=== PATIENT | male | born 1945 | race Caucasian/White ===

== ENCOUNTER 2017-11-27 15:16 | Inpatient (IN) | payer OTHER, SELFPAY ==
[2017-11-27 23:45] VITALS: BP 148/86; PULSE 63; RESP 20; TEMP 36.5; O2SAT 98
[2017-11-28] VITALS (7 sets, daily range): BP systolic 127–152; BP diastolic 64–83; PULSE 69–75; RESP 16–20; TEMP 36.4–36.9; O2SAT 92–99
[2017-11-28] MEDS: METOCLOPRAMIDE 10 MG/2 ML VIAL IV ×2 (03:24→12:21)
[2017-11-28] MEDS: MAG HYDROX/ALUM/SIMETH 30 ML UDC PO (03:35)
[2017-11-28] MEDS: OXYCODONE IR 5 MG TABLET PO ×2 (04:03→05:07)
[2017-11-28] MEDS: CEFAZOLIN 2 GM/100 ML FROZ.PIGGY IV (05:10)
[2017-11-28 06:09] LABS: Hematocrit 35.8 % (41-53); Hemoglobin 12.4 g/dL (13.5-17.5); Mean Corpuscular HGB Conc 34.7 % (30-36); Mean Corpuscular Hemoglobin 31.7 PG (26-34); Mean Corpuscular Volume 91.3 fL (80-100); Platelet Count 161 X10^3/uL (150-400); Red Blood Cell Count 3.92 X10^6/uL (4.5-5.9); Red Cell Distribution Width 14.2 % (11.6-14.8); White Blood Cell Count 8.1 X10^3/uL (4.5-11.0)
[2017-11-28] MEDS: ASPIRIN EC 81 MG TABLET PO ×2 (08:58→20:00)
[2017-11-28] MEDS: FLUTICASONE 120 SPRAY/16 GM SPRAY.SUSP NASAL (08:59)
[2017-11-28] MEDS: buPROPion SR 100 MG TAB PO ×2 (08:59→20:00)
[2017-11-28] MEDS: DOCUSATE 100 MG CAPSULE PO ×2 (08:59→20:00)
[2017-11-28] MEDS: LISINOPRIL 20 MG TABLET 40 MG PO (09:01)
[2017-11-28] MEDS: SODIUM CHLORIDE 0.9% FLUSH 10 ML IV ×3 (09:01→20:00)
--- NOTE | 2017-11-28 09:33 | P.PN_ITS ---
Subjective Interval history: POD #1 s/p left total knee arthroplasty with Dr. Kirk. Patient's pain is well controlled this AM with Oxycodone. ASA 81mg BID for vte prophylaxis. Has been up with PT yesterday, will mobilize today. Patient has flexion contracture of non-op leg, and does not have a wedge. Date Patient Seen: 11/28/17 Time Patient Seen: 09:23 Exam Vital Signs (past 8 hours): Vital Signs - 8 hr 11/28/17 03:40 11/28/17 07:45 Temperature 97.6 F 98.2 F Pulse Rate 75 71 Respiratory Rate 18 16 Blood Pressure 151/83 H 152/80 H Pulse Oximetry 96 98 Temperature 98.2 F Temperature 97.6 F Pulse Rate 71 Pulse Rate 75 Respiratory Rate 16 Respiratory Rate 18 Blood Pressure 152/80 Blood Pressure 151/83 Pulse Oximetry 98 Pulse Oximetry 96 Objective Labs CBC & Chem 7: 11/28/17 05:23 Labs: Laboratory Results - last 24 hr 11/28/17 05:23 WBC 8.1 RBC 3.92 L Hgb 12.4 L Hct 35.8 L MCV 91.3 MCH 31.7 MCHC 34.7 RDW 14.2 Plt Count 161 A/P Post-op (1) S/P total knee arthroplasty: Current Visit: Yes Status: Acute (2) Unilateral primary osteoarthritis, left knee: Current Visit: Yes Status: Acute Time Spent With Patient POD #1 s/p left total knee arthroplasty with Dr. Kirk. Patient will need wedge for his non operative shoe, that he can purchase at [email or web address]. Patient has pain medication and prescriptions already at home. Continue aspirin for vte prophylaxis. Patient did have structures in the operating room when Candelario catheter was placed. We will remove catheter this morning and monitor patient's urination. If patient is mobilizing well, pain under control, and urinating on his own he can DC home today. less than 15 minutes
--- NOTE | 2017-11-28 09:48 | CM.DPNOTE ---
DCP/continued: Reviewed chart. Pt. underwent left TKA on 11-27-[address] Kirk. Met with patient, spouse/Xochitl, and daughter/Antonette at bedside explained CM/SW role. Patient reports that he hopes to go home today. PT evaluation currently pending. Patient has all needed DME and reports that outpatient therapy scheduled to begin next week at [facility] in [facility]. P: Home when medically stable. CM team to continue to follow as needed. JESE Paz
[2017-11-28] MEDS: OXYCODONE IR 10 MG TABLET PO ×3 (10:44→19:58)
[2017-11-28] MEDS: TIZANIDINE 4 MG TABLET PO (12:19)
[2017-11-28] MEDS: ACETAMINOPHEN 325 MG TABLET 650 MG PO ×2 (12:20→20:58)
--- NOTE | 2017-11-28 13:17 | PT.IIE ---
Physical Therapy Inpatient M1 PT/OT-IP Prior Functional Status Start: 11/28/17 12:52 Freq: NEEDED Status: Active Protocol: Document 11/28/17 12:53 AB (Rec: 11/28/17 13:16 AB [email or web address]) Medical Review Prior Functional Status Medical History Reviewed Yes Diet/Fluid Consistency Regular Mobility and Gait Independent with all mobilities and ambulation without AD Social History Household Members spouse Living Arrangements House Number of Floors (Floors) One Floor Number of Stairs To Enter/Railing? 2 steps with L rail and R bar on door Home Environment High Toilet Home Equipment Front Wheel Walker Four Wheel Walker Straight Cane Employment Status [employer] Employed Additional Social History Comment pt works once a week: [employer] [address] M2 PT-IP Current Condition Start: 11/28/17 12:52 Freq: NEEDED Status: Active Protocol: Document 11/28/17 12:53 AB (Rec: 11/28/17 13:16 AB [email or web address]) Physical Therapy Current Condition Current Condition Evaluation Date 11/28/17 Treatment Diagnosis s/p L TKR; difficulty in ambulation Onset Date 11/27/17 Weight Bearing Status Weight Bearing Status Weight Bear as Tolerated Allowed Weight Bearing Amount (enter % LLE WBAT or #) (%) M3 PT-IP Subjective Start: 11/28/17 12:52 Freq: NEEDED Status: Active Protocol: Document 11/28/17 12:53 AB (Rec: 11/28/17 13:16 AB [email or web address]) Subjective Physical Therapy Visit Type Type Initial Evaluation Visit Start Time 10:52 Visit Stop Time 12:00 Total Visit Minutes 68 Number of LIGHT ARMORED VEHICLE OFFICER Visits 0 Physical Therapy Visit Comments Patient Comments i feel sore Therapy Pain Assessment Pain When Pain Assessed At Rest Pain Present Pain Present Pain Reported Location Left Knee Intensity 5 Scale Used Numeric (1 - 10) Description Pulling Pain Behaviors Guarding Pain Management Techniques Apply Cold Timing of Activity with Medications M4 PT-IP Mobility and Gait Start: 11/28/17 12:52 Freq: NEEDED Status: Active Protocol: Document 11/28/17 12:53 AB (Rec: 11/28/17 13:16 AB [email or web address]) PT-Bed Mobility Assessment Supine to Sit Supine to Sit Standby Assistance Sit to Supine Sit to Supine Minimal Assistance Scooting Scooting to Edge of Bed Standby Assistance PT-Transfer Assessment Sit to and From Stand Sit to and from Stand Minimal Assistance Equipment Transfer Assistive Device Gait Belt Front Wheeled Walker Transfers Transfer Destination Chair Transfer Technique Stand Step Pivot Transfer Ability Level of Assist Minimal Assistance Comments Mobility Comments Pt completed sit <>stand x 2 reps with cues for techniques. caregiver training conducted with assisting pt for bed mobility and transfers. Gait Assessment Gait Gait Assistance Required: Minimum Assistance Distance (Feet) (feet) 35 Able to Maintain Weight Bearing Status Yes During Gait Assistive Devices Assistive Device Gait Belt Front Wheeled Walker Orthotic/Prosthetic Devices or Brace: No Gait Deviations General Gait Pattern Antalgic Decreased Stride Length Decreased Feet Clearance Step-to Gait Factors Limiting Gait Function Factors Limiting Gait Function Decreased Activity Tolerance Decreased Strength Limited Range of Motion Pain Poor Balance Comments Gait Comments pt ambulated in room using FWW initially with PT assisting. conducted caregiver training and pt able to ambulate with spouse assisting using FWW ~ 20 ft Stair Climbing Assessment Evaluation Level of Assist On Stairs Moderate Assistance Maximal Assistance Devices Stair Climbing Assistive Devices Left Railing Technique/Endurance Stair Climbing Direction Ascend and Descend Stair Climbing Technique Step to Step Number of Steps Climbed 3 Query Text: Stair Climbing Set # Repetitions (reps) 2 Comments Stair Climbing Comments pt completed up/down steps and requires max cues for techniques and safety PT-Balance Assessment Sitting Balance and Reactions Static Sitting Balance Ability Good Dynamic Sitting Balance Ability Good Standing Balance and Reactions Static Standing Balance Ability Fair Dynamic Standing Balance Ability Fair Device Used FWW M5 PT-IP Objective Assessments Start: 11/28/17 12:52 Freq: NEEDED Status: Active Protocol: Document 11/28/17 12:53 AB (Rec: 11/28/17 13:16 AB [email or web address]) Orientation Orientation/Cognition Level of Alertness Alert Orientation Name Age Birthday Month Date Year Day of Week Place Situation Safety Awareness Decreased Safety Awareness Comments pt stated that he feels drowsy and hard to think due to medication Gross Range of Motion Lower Extremity ROM Assessment Left Impaired Strength Lower Extremity Strength Assessment Left Impaired Knee extension 3-/5 M6 PT-IP Treatment Start: 11/28/17 12:52 Freq: NEEDED Status: Active Protocol: Document 11/28/17 12:53 AB (Rec: 11/28/17 13:16 AB [email or web address]) Physical Therapy Treatment Education Post-Op Education Precautions Weight Bearing Status Post-Op Packet Safety Other Treatments Other Treatment Performed caregiver training conducted and spouse was able to assist pt with bed mobility, transfers and ambulation. further training needed for stair climbing M7 PT-IP Assessment and Plan Start: 11/28/17 12:52 Freq: NEEDED Status: Active Protocol: Document 11/28/17 12:53 AB (Rec: 11/28/17 13:16 AB [email or web address]) PT Summary Assessment and Plan Potential Rehabilitation Potential Good Status of Condition at Evaluation Evolving Summary Impairments Pain ROM Strength Balance Bed Mobility Transfers Gait Activity Tolerance Progress Towards Goals Slow Progress due to Pain Slow Progress due to Activity Tolerance Assessment Summary pt requires one person assist with mobility. caregiver training initiated but further training needed. pt is set up for outpt PT. will conduct further caregiver training and stair climbing training and if pt and spouse able to safely complete, pt may go home when medically stable. Goals Bed Mobility Goal Standby Assistance Transfer Goal Standby Assistance Front Wheeled Walker Gait Goal Standby Assistance Front Wheel Walker Gait Distance 100 Other Goals up/down 2 steps with L rail SBA Days to Meet Goals 2 Frequency of Treatment Frequency Of Treatment Twice a Day Treatment Plan Physical Therapy Treatment Plan Bed Mobility Training Transfer Training Gait Training Therapeutic Exercise Balance Retraining Post Op Education Discharge Planning Hot or Cold Pack Neuromuscular Re-ed Other Recommendations and Next Treatment caregiver training, stair Focus climbing training Recommendations To Nursing Amount of Assist Needed 1 Person Assist Discharge Recommendations PT Discharge Recommendations Home with Assistance
--- NOTE | 2017-11-28 16:33 | PT.IPTN ---
Current Diagnoses Unilateral primary osteoarthritis, left knee (11/27/17) Presence of unspecified artificial knee joint (11/27/17) Physical Therapy Treatment Note M2 PT-IP Current Condition Start: 11/28/17 12:52 Freq: NEEDED Status: Active Protocol: Activity Type Activity Date Activity User E-Sign Co-Sign Detail Recorded Client Recorded Date Recorded By Document 11/28/17 12:53 AB [email or web address] 11/28/17 13:16 AB 11/28/17 12:53 Physical Therapy Current Condition [Current Condition] -Evaluation Date 11/28/17 -Treatment Diagnosis s/p L TKR; difficulty in ambulation -Onset Date 11/27/17 [Weight Bearing Status] -Weight Bearing Status Weight Bear as Tolerated -Allowed Weight Bearing Amount (enter LLE WBAT % or #) (%) M3 PT-IP Subjective Start: 11/28/17 12:52 Freq: NEEDED Status: Active Protocol: Activity Type Activity Date Activity User E-Sign Co-Sign Detail Recorded Client Recorded Date Recorded By Document 11/28/17 16:10 AB [id number] 11/28/17 16:32 AB 11/28/17 16:10 Subjective [Physical Therapy Visit Type] -Type Treatment Note -Visit Start Time 15:18 -Visit Stop Time 16:05 -Total Visit Minutes 47 -Number of EARTH SCIENCES PROFESSOR Visits 0 [Physical Therapy Visit Comments] -Patient Comments pt agreeable to do therapy M4 PT-IP Mobility and Gait Start: 11/28/17 12:52 Freq: NEEDED Status: Active Protocol: Activity Type Activity Date Activity User E-Sign Co-Sign Detail Recorded Client Recorded Date Recorded By Document 11/28/17 16:10 AB [id number] 11/28/17 16:32 AB 11/28/17 16:10 PT-Bed Mobility Assessment [Supine to Sit] -Supine to Sit Standby Assistance [Sit to Supine] -Sit to Supine Minimal Assistance [Scooting] -Scooting to Edge of Bed Standby Assistance PT-Transfer Assessment [Sit to and From Stand] -Sit to and from Stand Contact Guard Assistance [Equipment] -Transfer Assistive Device Gait Belt Front Wheeled Walker [Comments] -Mobility Comments caregiver training conducted again and pt's spouse assisted him with bed mobility and was able to complete safely Gait Assessment [Gait] -Gait Assistance Required: Contact Guard Assist Minimum Assistance -Distance (Feet) (feet) 35 -Able to Maintain Weight Bearing Yes Status During Gait [Assistive Devices] -Assistive Device Gait Belt Front Wheeled Walker -Orthotic/Prosthetic Devices or Brace: No [Gait Deviations] -General Gait Pattern Antalgic Decreased Stride Length Decreased Feet Clearance Step-to Gait [Factors Limiting Gait Function] -Factors Limiting Gait Function Decreased Activity Tolerance Decreased Strength Limited Range of Motion Pain [Comments] -Gait Comments caregiver training conducted for gait training and spouse was able to assist pt with ambulation safely Stair Climbing Assessment [Evaluation] -Level of Assist On Stairs Minimal Assistance Moderate Assistance [Devices] -Stair Climbing Assistive Devices Straight Cane Left Railing [Technique/Endurance] -Stair Climbing Direction Ascend and Descend -Stair Climbing Technique Step to Step -Number of Steps Climbed 3 Query Text: -Stair Climbing Set # Repetitions ( 2 reps) [Comments] -Stair Climbing Comments pt completed up /down steps with spouse assisting and completed. PT provided cues and CGA. M5 PT-IP Objective Assessments Start: 11/28/17 12:52 Freq: NEEDED Status: Active Protocol: Activity Type Activity Date Activity User E-Sign Co-Sign Detail Recorded Client Recorded Date Recorded By Document 11/28/17 12:53 AB [email or web address] 11/28/17 13:16 AB 11/28/17 12:53 Orientation [Orientation/Cognition] -Level of Alertness Alert -Orientation Name Age Birthday Month Date Year Day of Week Place Situation -Safety Awareness Decreased Safety Awareness -Comments pt stated that he feels drowsy and hard to think due to medication Gross Range of Motion [Lower Extremity ROM] -Assessment Left Impaired Strength [Lower Extremity Strength] -Assessment Left Impaired -Knee extension 3-/5 M6 PT-IP Treatment Start: 11/28/17 12:52 Freq: NEEDED Status: Active Protocol: Activity Type Activity Date Activity User E-Sign Co-Sign Detail Recorded Client Recorded Date Recorded By Document 11/28/17 16:10 AB [id number] 11/28/17 16:32 AB 11/28/17 16:10 Physical Therapy Treatment [Education] -Post-Op Education Safety M7 PT-IP Assessment and Plan Start: 11/28/17 12:52 Freq: NEEDED Status: Active Protocol: Activity Type Activity Date Activity User E-Sign Co-Sign Detail Recorded Client Recorded Date Recorded By Document 11/28/17 16:10 AB [id number] 11/28/17 16:32 AB 11/28/17 16:10 PT Summary Assessment and Plan [Potential] -Rehabilitation Potential Good [Summary] -Impairments Pain ROM Strength Balance Bed Mobility Gait Activity Tolerance -Progress Towards Goals Slow Progress due to Pain -Assessment Summary conducted caregiver training and spouse was able to assist pt safely. pt may go home when medically stable. [Goals] -Bed Mobility Goal Standby Assistance -Transfer Goal Standby Assistance -Gait Goal Standby Assistance Front Wheel Walker -Gait Distance 125 -Other Goals up/down 2 steps with -Days to Meet Goals 2 [Frequency of Treatment] -Frequency Of Treatment Once a Day [Treatment Plan] -Physical Therapy Treatment Plan Bed Mobility Training Transfer Training Gait Training Therapeutic Exercise Balance Retraining Post Op Education Discharge Planning Hot or Cold Pack Neuromuscular Re-ed Coordination Retraining Manual Therapy [Recommendations To Nursing] -Amount of Assist Needed 1 Person Assist [Discharge Recommendations] -PT Discharge Recommendations Home with Assistance Outpatient PT
[2017-11-28] MEDS: ALLOPURINOL 300 MG TABLET PO (19:59)
[2017-11-28] MEDS: MAGNESIUM HYDROXIDE 30 ML UDC PO (20:00)
[2017-11-28] MEDS: SIMVASTATIN 40 MG TABLET 80 MG PO (20:00)
[2017-11-28] MEDS: IBUPROFEN 400 MG TABLET PO (21:58)
[2017-11-29] MEDS: OXYCODONE IR 10 MG TABLET PO ×3 (00:28→08:41)
[2017-11-29 00:30] VITALS: BP 144/79; PULSE 66; RESP 17; TEMP 36.8; O2SAT 94
[2017-11-29] MEDS: TIZANIDINE 4 MG TABLET PO (00:30)
[2017-11-29 04:50] VITALS: BP 126/65; PULSE 58; RESP 20; TEMP 36.3; O2SAT 94
[2017-11-29] MEDS: IBUPROFEN 400 MG TABLET PO (05:12)
[2017-11-29 07:30] VITALS: BP 131/71; PULSE 65; RESP 16; TEMP 36.4; O2SAT 98
--- NOTE | 2017-11-29 08:11 | PM.DS.1 ---
History of Present Illness Chief complaint: *Opb* Left Total Knee; [address] Narrative: Nathanael Tubbs is a 72 year old male. See preoperative history and physical for history of present illness. Discharge Providers Date of admission: 11/27/17 15:43 Consults: 11/27/17 18:51 Consult to Discharge Planning Routine Comment: Consult to Physical Therapy Evaluate & Treat Comment: Physician Instructions: Evaluate and Treat Discharge provider: Jas Montoya PA-C Summary Discharge Diagnosis (1) S/P total knee arthroplasty: Status: Acute (2) Unilateral primary osteoarthritis, left knee: Status: Acute Time Spent with Patient Total time spent providing and/or coordinating discharge services:5 Exam Vital Signs (past 8 hours): Vital Signs - 8 hr 11/29/17 00:30 11/29/17 04:50 Temperature 98.3 F 97.3 F L Pulse Rate 66 58 L Respiratory Rate 17 20 Blood Pressure 144/79 H 126/65 H Pulse Oximetry 94 94 Temperature 97.3 F Temperature 98.3 F Pulse Rate 58 Pulse Rate 66 Respiratory Rate 20 Respiratory Rate 17 Blood Pressure 126/65 Blood Pressure 144/79 Pulse Oximetry 94 Pulse Oximetry 94 Pulse Oximetry 94 Oxygen Delivery Method CPAP Narrative Exam Narrative: The patient remained stable postoperatively. Resting well last night. He did require Candelario catheter yesterday for urine retention but is voiding well now. He was up with physical therapy yesterday did do steps. Pain has been controlled with oxycodone. Left knee. Aquacel dressing to left knee is dry with small areas of narrowing. No signs of infection or inflammation. Mild swelling of the knee and lower leg. Calf is soft and nontender. Good pulses distally. Const General: comfortable and well developed Nutritional Appearance: well nourished Orientation: alert Extrem General: other Objective Labs CBC & Chem 7: 11/28/17 05:23 Discharge Plan Discharge Plan Patient Disposition: Home, Self-Care Discharge Comment: Discharge to home after cleared by physical therapy Discharge Med Rec/Prescriptions Prescriptions: New acetaminophen 325 mg Tablet 325 mg PO Q4HR PRN (Reason: As Needed For Fever/Mild Pain) Qty: 0 RF: 0 acetaminophen 325 mg Tablet 650 mg PO Q4HR PRN (Reason: As Needed For Fever/Mild Pain) Qty: 0 RF: 0 aspirin 81 mg Tablet,Delayed Release (Dr/Ec) 81 mg PO BID Qty: 0 RF: 0 oxycodone 5 mg Tablet 5 mg PO Q3HR MDD 10 PRN (Reason: Moderate Pain) Qty: 0 RF: 0 oxycodone 10 mg Tablet 10 mg PO Q3HR MDD 10 PRN (Reason: Severe Pain) Qty: 0 RF: 0 Continue allopurinol 300 MG tablet 300 mg PO QDAY Qty: 0 RF: 0 triamcinolone acetonide 0.5 % cream 1 johnny Topical PRN PRN (Reason: Rash) Qty: 0 RF: 0 simvastatin 80 MG tablet 80 mg PO HS Qty: 0 RF: 0 tizanidine 4 MG tablet 4 mg PO Q12HP PRN (Reason: Nausea) Qty: 0 RF: 0 fluticasone 16 GM spray,suspension 2 spray Intranasal QDAY Qty: 0 RF: 0 vitamin E 400 UNIT capsule 400 iu PO BID Qty: 0 RF: 0 lisinopril 40 MG tablet 40 mg PO QDAY Qty: 0 RF: 0 acetaminophen [Tylenol Extra Strength] 500 MG tablet 1,000 mg PO HS Qty: 0 RF: 0 Discontinued aspirin 325 MG tablet,delayed release (DR/EC) 325 mg PO QDAY Qty: 0 RF: 0 bupropion HCl [Wellbutrin SR] 100 MG tablet extended release 12 hr 100 mg PO BID Qty: 0 RF: 0 diphenhydramine-acetaminophen [Acetaminophen PM] 500 MG/25 MG tablet 1 tab PO HSP PRN (Reason: Pain) Qty: 0 RF: 0 ibuprofen 200 MG tablet 400 mg PO TIDP PRN (Reason: Pain) Qty: 0 RF: 0 Provider Discharge Instructions Diet: Diet as Tolerated Activity: Activity as tolerated Cold/Heat Therapy: Apply ice as needed for comfort Wound Care Report to your healthcare provider any signs of infection, such as:: chills, fever Dressing: Keep dressing clean, dry, and intact until follow up appointment and May shower with dressing place Discharge Data Attending Provider: Naseem Kirk Admit Date/Time: 11/27/17 15:43
[2017-11-29 08:30] VITALS: O2SAT 96
[2017-11-29] MEDS: ASPIRIN EC 81 MG TABLET PO (08:42)
[2017-11-29] MEDS: DOCUSATE 100 MG CAPSULE PO (08:42)
[2017-11-29] MEDS: buPROPion SR 100 MG TAB PO (08:42)
[2017-11-29] MEDS: LISINOPRIL 20 MG TABLET 40 MG PO (08:43)
[2017-11-29] MEDS: ACETAMINOPHEN 325 MG TABLET 650 MG PO (08:45)
[2017-11-29] MEDS: SODIUM CHLORIDE 0.9% FLUSH 10 ML IV (09:20)
--- NOTE | 2017-11-29 11:17 | PC.NURSE ---
DISCHARGE - reviewed instructions, scripts had been filled prior to surgery, belongings gathered and after PT this am, escorted via wc by route salesperson with his clothing, glasses bag, cell phone and cutter out and own cpap.
--- NOTE | 2017-11-29 11:22 | PT.OTN ---
Current Diagnoses Unilateral primary osteoarthritis, left knee (11/27/17) Presence of unspecified artificial knee joint (11/27/17)
--- NOTE | 2017-11-29 11:28 | PT.IPTN ---
Current Diagnoses Unilateral primary osteoarthritis, left knee (11/27/17) Presence of unspecified artificial knee joint (11/27/17) Physical Therapy Treatment Note M2 PT-IP Current Condition Start: 11/28/17 12:52 Freq: NEEDED Status: Active Protocol: Activity Type Activity Date Activity User E-Sign Co-Sign Detail Recorded Client Recorded Date Recorded By Document 11/28/17 12:53 AB [email or web address] 11/28/17 13:16 AB 11/28/17 12:53 Physical Therapy Current Condition [Current Condition] -Evaluation Date 11/28/17 -Treatment Diagnosis s/p L TKR; difficulty in ambulation -Onset Date 11/27/17 [Weight Bearing Status] -Weight Bearing Status Weight Bear as Tolerated -Allowed Weight Bearing Amount (enter LLE WBAT % or #) (%) M3 PT-IP Subjective Start: 11/28/17 12:52 Freq: NEEDED Status: Active Protocol: Activity Type Activity Date Activity User E-Sign Co-Sign Detail Recorded Client Recorded Date Recorded By Document 11/29/17 11:07 [facility] [id number] 11/29/17 11:20 [facility] 11/29/17 11:07 Subjective [Physical Therapy Visit Type] -Type Treatment Note -Visit Start Time 10:35 -Visit Stop Time 11:00 -Total Visit Minutes 25 -Number of INTERNET NETWORK SPECIALIST Visits 1 [Physical Therapy Visit Comments] -Patient Comments Pt. wants to practice stair training. M4 PT-IP Mobility and Gait Start: 11/28/17 12:52 Freq: NEEDED Status: Active Protocol: Activity Type Activity Date Activity User E-Sign Co-Sign Detail Recorded Client Recorded Date Recorded By Document 11/29/17 11:07 [facility] [id number] 11/29/17 11:20 [facility] 11/29/17 11:07 PT-Transfer Assessment [Sit to and From Stand] -Sit to and from Stand Standby Assistance [Equipment] -Transfer Assistive Device Gait Belt Front Wheeled Walker [Comments] -Mobility Comments Pt. caregiver available for SBA and pt. used BR independently. Gait Assessment [Gait] -Gait Assistance Required: Standby Assistance -Distance (Feet) (feet) 20 -Able to Maintain Weight Bearing Yes Status During Gait [Assistive Devices] -Assistive Device Gait Belt Front Wheeled Walker -Orthotic/Prosthetic Devices or Brace: No [Gait Deviations] -General Gait Pattern Antalgic Decreased Stride Length Decreased Feet Clearance Step-to Gait [Factors Limiting Gait Function] -Factors Limiting Gait Function Decreased Activity Tolerance Decreased Strength Limited Range of Motion Pain [Comments] -Gait Comments SBA to/from BR and to/from wheel chair w avaiable to assist. Stair Climbing Assessment [Evaluation] -Level of Assist On Stairs Minimal Assistance 1 Person Assistance [Devices] -Stair Climbing Assistive Devices Straight Cane Left Railing [Technique/Endurance] -Stair Climbing Direction Ascend and Descend -Stair Climbing Technique Step to Step -Number of Steps Climbed 3 Query Text: -Stair Climbing Set # Repetitions ( 2 reps) [Comments] -Stair Climbing Comments pt completed up /down steps with spouse assisting and completed. PT provided cues and CGA. M5 PT-IP Objective Assessments Start: 11/28/17 12:52 Freq: NEEDED Status: Active Protocol: Activity Type Activity Date Activity User E-Sign Co-Sign Detail Recorded Client Recorded Date Recorded By Document 11/28/17 12:53 AB [email or web address] 11/28/17 13:16 AB 11/28/17 12:53 Orientation [Orientation/Cognition] -Level of Alertness Alert -Orientation Name Age Birthday Month Date Year Day of Week Place Situation -Safety Awareness Decreased Safety Awareness -Comments pt stated that he feels drowsy and hard to think due to medication Gross Range of Motion [Lower Extremity ROM] -Assessment Left Impaired Strength [Lower Extremity Strength] -Assessment Left Impaired -Knee extension 3-/5 M6 PT-IP Treatment Start: 11/28/17 12:52 Freq: NEEDED Status: Active Protocol: Activity Type Activity Date Activity User E-Sign Co-Sign Detail Recorded Client Recorded Date Recorded By Document 11/28/17 16:10 AB [id number] 11/28/17 16:32 AB 11/28/17 16:10 Physical Therapy Treatment [Education] -Post-Op Education Safety M7 PT-IP Assessment and Plan Start: 11/28/17 12:52 Freq: NEEDED Status: Active Protocol: Activity Type Activity Date Activity User E-Sign Co-Sign Detail Recorded Client Recorded Date Recorded By Document 11/29/17 11:07 R [id number] 11/29/17 11:20 R 11/29/17 11:07 PT Summary Assessment and Plan [Recommendations To Nursing] -Amount of Assist Needed 1 Person Assist [Discharge Recommendations] -PT Discharge Recommendations Home with Assistance Outpatient PT
--- NOTE | 2017-11-29 11:29 | PT.IPTN ---
Current Diagnoses Unilateral primary osteoarthritis, left knee (11/27/17) Presence of unspecified artificial knee joint (11/27/17) Physical Therapy Treatment Note M2 PT-IP Current Condition Start: 11/28/17 12:52 Freq: NEEDED Status: Active Protocol: Activity Type Activity Date Activity User E-Sign Co-Sign Detail Recorded Client Recorded Date Recorded By Document 11/28/17 12:53 AB [email or web address] 11/28/17 13:16 AB 11/28/17 12:53 Physical Therapy Current Condition [Current Condition] -Evaluation Date 11/28/17 -Treatment Diagnosis s/p L TKR; difficulty in ambulation -Onset Date 11/27/17 [Weight Bearing Status] -Weight Bearing Status Weight Bear as Tolerated -Allowed Weight Bearing Amount (enter LLE WBAT % or #) (%) M3 PT-IP Subjective Start: 11/28/17 12:52 Freq: NEEDED Status: Active Protocol: Activity Type Activity Date Activity User E-Sign Co-Sign Detail Recorded Client Recorded Date Recorded By Document 11/29/17 11:07 [facility] [id number] 11/29/17 11:20 [facility] 11/29/17 11:07 Subjective [Physical Therapy Visit Type] -Type Treatment Note -Visit Start Time 10:35 -Visit Stop Time 11:00 -Total Visit Minutes 25 -Number of WOMEN'S HEALTH CARE NURSE PRACTITIONER Visits 1 [Physical Therapy Visit Comments] -Patient Comments Pt. wants to practice stair training. M4 PT-IP Mobility and Gait Start: 11/28/17 12:52 Freq: NEEDED Status: Active Protocol: Activity Type Activity Date Activity User E-Sign Co-Sign Detail Recorded Client Recorded Date Recorded By Document 11/29/17 11:07 [facility] [id number] 11/29/17 11:20 [facility] 11/29/17 11:07 PT-Transfer Assessment [Sit to and From Stand] -Sit to and from Stand Standby Assistance [Equipment] -Transfer Assistive Device Gait Belt Front Wheeled Walker [Comments] -Mobility Comments Pt. caregiver available for SBA and pt. used BR independently. Gait Assessment [Gait] -Gait Assistance Required: Standby Assistance -Distance (Feet) (feet) 20 -Able to Maintain Weight Bearing Yes Status During Gait [Assistive Devices] -Assistive Device Gait Belt Front Wheeled Walker -Orthotic/Prosthetic Devices or Brace: No [Gait Deviations] -General Gait Pattern Antalgic Decreased Stride Length Decreased Feet Clearance Step-to Gait [Factors Limiting Gait Function] -Factors Limiting Gait Function Decreased Activity Tolerance Decreased Strength Limited Range of Motion Pain [Comments] -Gait Comments SBA to/from BR and to/from wheel chair w avaiable to assist. Stair Climbing Assessment [Evaluation] -Level of Assist On Stairs Minimal Assistance 1 Person Assistance [Devices] -Stair Climbing Assistive Devices Straight Cane Left Railing [Technique/Endurance] -Stair Climbing Direction Ascend and Descend -Stair Climbing Technique Step to Step -Number of Steps Climbed 3 Query Text: -Stair Climbing Set # Repetitions ( 2 reps) [Comments] -Stair Climbing Comments pt completed up /down steps with spouse assisting and completed. PT provided cues and CGA. M5 PT-IP Objective Assessments Start: 11/28/17 12:52 Freq: NEEDED Status: Active Protocol: Activity Type Activity Date Activity User E-Sign Co-Sign Detail Recorded Client Recorded Date Recorded By Document 11/28/17 12:53 AB [email or web address] 11/28/17 13:16 AB 11/28/17 12:53 Orientation [Orientation/Cognition] -Level of Alertness Alert -Orientation Name Age Birthday Month Date Year Day of Week Place Situation -Safety Awareness Decreased Safety Awareness -Comments pt stated that he feels drowsy and hard to think due to medication Gross Range of Motion [Lower Extremity ROM] -Assessment Left Impaired Strength [Lower Extremity Strength] -Assessment Left Impaired -Knee extension 3-/5 M6 PT-IP Treatment Start: 11/28/17 12:52 Freq: NEEDED Status: Active Protocol: Activity Type Activity Date Activity User E-Sign Co-Sign Detail Recorded Client Recorded Date Recorded By Document 11/28/17 16:10 AB [id number] 11/28/17 16:32 AB 11/28/17 16:10 Physical Therapy Treatment [Education] -Post-Op Education Safety M7 PT-IP Assessment and Plan Start: 11/28/17 12:52 Freq: NEEDED Status: Active Protocol: Activity Type Activity Date Activity User E-Sign Co-Sign Detail Recorded Client Recorded Date Recorded By Document 11/29/17 11:07 R [id number] 11/29/17 11:20 R 11/29/17 11:07 PT Summary Assessment and Plan [Recommendations To Nursing] -Amount of Assist Needed 1 Person Assist [Discharge Recommendations] -PT Discharge Recommendations Home with Assistance Outpatient PT
== END 2017-11-29 11:31 | disposition home or self-care (01) | DRG 470 ==
PROVIDERS: Admitting Provider Orthopaedic Surgery; Visit Provider Orthopaedic Surgery
DX: M17.12 Unilateral primary osteoarthritis, left knee (principal); I10 Essential (primary) hypertension; E78.5 Hyperlipidemia, unspecified; Z87.891 Personal history of nicotine dependence; G47.33 Obstructive sleep apnea (adult) (pediatric)
CPT/HCPCS: 36415; 73560; 85027; 94760; 97116; 97162; 97530; C1776; C9290; J0690; J2250; J2270; J2704; J2765; J3010

== ENCOUNTER 2018-07-09 10:59 | Inpatient (IN) | payer OTHER, SELFPAY ==
[2018-06-26 09:53] VITALS: BMI 29.8
[2018-07-09] VITALS (14 sets, daily range): BP systolic 114–149; BP diastolic 66–96; PULSE 54–101; RESP 10–20; TEMP 36.4–36.7; O2SAT 93–99; BMI 29.8
--- NOTE | 2018-07-09 06:00 | DI.RAD.S_ITS ---
PROCEDURE: XR KNEE RT 1TO2V INDICATIONS: prosthesis placement TECHNIQUE: 2 view(s) of the knee acquired. COMPARISON: [facility] Mihir Allen, CR, XR KNEE ARTHRITIC SERIES BI, 01/10/2018, 11:09. FINDINGS: Bones: Patient is status post knee joint arthroplasty. Hardware components are in expected positions. Visualized bony structures are intact. Soft tissues: Overlying postoperative changes are noted. Expected postoperative changes within the overlying soft tissues are present with areas of soft tissue air, edema, and fluid. No unexpected radiopaque foreign bodies are evident. IMPRESSION: Expected postsurgical changes related to total right knee arthroplasty. Dictated by: Macho Kc M.D. on 07/09/2018 at 14:56 Approved by: Macho Kc M.D. on 07/09/2018 at 14:56
[2018-07-09] MEDS: ACETAMINOPHEN 325 MG TABLET 975 MG PO ×3 (11:38→20:07)
[2018-07-09] MEDS: CELECOXIB 200 MG CAPSULE PO (11:38)
[2018-07-09] MEDS: LACTATED RINGERS 1,000 ML 42 ML IV ×2 (11:38→14:31)
[2018-07-09] MEDS: PREGABALIN 75 MG CAPSULE PO (11:39)
--- NOTE | 2018-07-09 12:33 | PM.PREOP ---
Pre-operative Note Interval Note Pre-op Check: Yes History & Physical Reviewed by Physician and Yes Exam Performed Changes: No
[2018-07-09] MEDS: CEFAZOLIN 2 GM/100 ML FROZ.PIGGY IV ×2 (13:14→20:10)
[2018-07-09] MEDS: TRANEXAMIC ACID 1,000 MG VIAL 1000 MG INJ ×2 (13:30→14:40)
--- NOTE | 2018-07-09 13:43 | SUR.OPER ---
Supine on padded OR bed. Pillow under head, arms secured on padded armboards <90 degree abduction. Safety belt across torso. Non-operative leg secured with tape over blanket over lower leg. Operative leg secured in DeMayo/Dilip positioner.
[2018-07-09] MEDS: MORPHINE 4 MG/ML INJ INJ (13:54)
[2018-07-09] MEDS: BUPIVACAINE 0.25% W/ EPI VIAL 50 ML INJ (13:54)
[2018-07-09] MEDS: BUPIVACAINE LIPOSOME 266 MG/20 ML VIAL INJ (13:54)
--- NOTE | 2018-07-09 15:03 | PM.OP.1 ---
Operative Date/Time/Diagnoses Date of procedure: 07/09/18 Time of procedure: 14:50 Pre-op diagnosis: Right knee osteoarthritis Post-op diagnosis: same Procedure & Clinicians Procedure: Right total knee replacement Same procedure as scheduled: Yes Indications: The patient has had progressively worsening right knee pain with radiographic changes consistent with arthritis. Non-operative management has failed and the patient has requested total knee replacement. The risks, benefits and alternatives to surgery were discussed with the patient prior to proceeding. Risks discussed included, but were not limited to, failure to relieve pain, stiffness, infection, nerve damage, deep venous thrombosis, pulmonary embolism, stroke, coma, heart attack, permanent paralysis and , as well as the potential need for eventual revision of the prosthetic. Surgeon: Naseem Kirk Health Information Systems Technician: Mariam Jordan Click Yes if Unassisted: No Anesthesia Type: General and Local Operative Notes Findings: Severe tricompartmental osteoarthritis with large osteophytes throughout the knee, fixed varus and flexion contracture deformities. Closure Type: primary Specimen(s): none sent Implants & Drains: Implants used in this procedure were manufactured by the [employer] and included the BCS II Journey total knee replacement with a size 7 cobalt chromium femur, 7 non porous tibial base plate, 10 mm cross-linked polyethylene BCS II tibial insert and a 35 mm oval Clau II patellar component. Applied: implant(s) Estimated Blood Loss (mL): 100 Blood products transfused: none Tourniquet time (min): 60 Procedure in detail: The patient was seen in the pre-operative area, where the patient identified the right knee as the operative site and this was marked with my initials. The patient received pre-operative antibiotics, and was taken to the operating room and placed on the operative table in the supine position. After satisfactory anesthesia, a it operations analyst out was performed. The right leg was encircled with a tourniquet about the proximal thigh, and the leg was prepared from the toes to the tourniquet with ChloroPrep in the usual fashion and draped through sterile drapes. The leg was elevated and exsanguinated with Eschmark bandage and the tourniquet inflated to 250 mmHg pressure. The knee was approached through an approximately 18 cm incision centered over the patella and carried into the knee through a medial parapatellar arthrotomy. The anterior osteophytes and soft tissues were removed. The rotational landmarks of Enid's line and the transepicondylar axis were marked on the femur with electrocautery, and intramedullary guide holes for the femur and tibia were created. The distal femoral cut was made in 6 degrees of valgus using the intramedullary guide at the +2 cut setting. The proximal tibial cut was then made using the intramedullary guide, taking 9 mm of bone off the less involved side. The extension gap was checked and the rotation of the femoral component confirmed with the gap balancing system. We could not quite fit the 9 mm block and so the tibia was recut with a +2 prior to balancing. A medial release was performed due to the fixed varus deformity. The anterior, posterior and chamfer cuts were then made. The posterior osteophytes and soft tissues were then removed. The posterior capsule was injected with part of a mixture of 60 ml 0.25% Marcaine mixed with 20 ml Exparel and 4 mg of morphine for post-operative pain control. The remainder of this mixture was injected into the capsule and subcutaneous tissues during cement curing. The tibia was prepared with the rotation set by an extra medullary guide. Trial tibial and femoral components were then placed and the intercondylar notch cut through the femoral trial. Range of motion was 0-135 degrees, with good stability throughout the range. The patella was then cut to accommodate the patellar prosthetic. There was no need for a lateral release. The trials were then removed, and the femoral hole plugged with a bone plug. The bone was prepared with pulsatile lavage, and dried with a sponge. Cement was applied and the final prosthetics placed. Excess cement was removed during and after cement curing. After confirming there was no extruded cement posteriorly, the final tibial insert was placed. The knee was copiously irrigated and the tourniquet deflated. Hemostasis was obtained. The capsule was closed with interrupted # 2 polyester suture. The subcutaneous layer was closed with 3-0 Vicryl, and the skin with a running 3-0 V-Lock suture and SteriStrips. An Aquacel Ag dressing was applied and the patient was taken to recovery having tolerated the procedure well. Complications: none Condition: stable Disposition: PACU Plan for aftercare: The patient will be maintained on a standard total knee replacement protocol with weight bearing as tolerated. The patient will receive aspirin and sequential compression devices for DVT prophylaxis. The patient will be discharged home when safe for the home environment.
[2018-07-09] MEDS: fentaNYL 100 MCG/2 ML INJ 50 MCG IV ×2 (15:25→15:35)
[2018-07-09] MEDS: HYDROMORPHONE 2 MG INJ 0.5 MG IV ×2 (15:30→15:40)
[2018-07-09] MEDS: LACTATED RINGERS 1,000 ML 125 ML IV (17:00)
[2018-07-09] MEDS: DOCUSATE 100 MG CAPSULE PO (20:08)
[2018-07-09] MEDS: buPROPion SR 100 MG TAB PO (20:08)
[2018-07-09] MEDS: SIMVASTATIN 40 MG TABLET 80 MG PO (20:09)
[2018-07-09] MEDS: hydrOXYzine pamoate 25 MG CAPSULE PO (22:54)
[2018-07-10] VITALS: BP 140/74; PULSE 77; RESP 20; O2SAT 98
[2018-07-10] MEDS: OXYCODONE IR 5 MG TABLET PO ×2 (00:09→11:27)
[2018-07-10 00:30] VITALS: TEMP 36.6
[2018-07-10 05:30] VITALS: BP 103/58; PULSE 70; RESP 18; TEMP 37; O2SAT 95
[2018-07-10] MEDS: CEFAZOLIN 2 GM/100 ML FROZ.PIGGY IV (05:30)
[2018-07-10] MEDS: ONDANSETRON 4 MG ODT PO (05:30)
[2018-07-10 06:02] LABS: Hematocrit 35.1 % (41-53); Hemoglobin 11.6 g/dL (13.5-17.5)
[2018-07-10] MEDS: ACETAMINOPHEN 325 MG TABLET 975 MG PO (06:10)
[2018-07-10] MEDS: NAPROXEN 250 MG TABLET PO (06:11)
--- NOTE | 2018-07-10 07:44 | PM.DS.1 ---
History of Present Illness Date Patient Seen: 07/10/18 Time Patient Seen: 07:44 Chief complaint: total knee arthroplasty right [id number] Narrative: History of present illness and physical examination is contained in the chart previously completed note. Please refer to that note for this information. Discharge Providers Date of admission: 07/09/18 10:59 Consults: 07/09/18 17:36 Consult to Discharge Planning Routine Comment: Consult to Physical Therapy Evaluate & Treat Comment: Physician Instructions: postop TKA protocol 07/09/18 18:17 Consult to Pastoral Services Routine Comment: request for chicken fancier visit Discharge provider: Naseem Kirk MD Discharge Date: 07/10/18 Summary Discharge Diagnosis: 1. Right knee osteoarthritis 2. Post hemorrhagic anemia Hospital Course: The patient was admitted to the hospital and taken directly to the operating room on July 09, 2018. He underwent a right total knee arthroplasty without complication. He had excellent pain control overnight and was interested in going home on postoperative day 1. He had made several trips to the bathroom with the nurses. At the time of this dictation is anticipated he will be ready for discharge later in the morning. Status at Discharge Cognitive/behavioral status at discharge: Baseline Functional status at discharge: uses cane/walker Overall status at discharge: patient is progressing back to baseline Time Spent with Patient Less than 30 minutes Exam Vital Signs (past 8 hours): - 07/10/18 00:00 07/10/18 00:30 07/10/18 05:30 Temperature 97.9 F 98.6 F Pulse Rate 77 70 Respiratory Rate 20 18 Blood Pressure 140/74 103/58 L Pulse Oximetry 98 95 Oxygen Delivery Method Room Air Oxygen Flow Rate 2 Narrative Exam Narrative: Right lower extremity wound is dressed with no drainage on the bandage. Calf is soft. Light touch and motion are intact in the right lower extremity. Objective Labs Result Diagrams: 07/10/18 05:03 Labs: Laboratory Results - last 24 hr 07/10/18 05:03 Hgb 11.6 L Hct 35.1 L Radiographs postoperatively reveal an appropriately positioned total knee arthroplasty with no signs of early complications. Discharge Plan Discharge Plan Patient Disposition: Home Discharge Med Rec/Prescriptions Prescriptions: New oxycodone 5 mg Tablet 5 mg PO Q3HR PRN (Reason: Pain, Moderate (4-6)) Qty: 60 RF: 0 Continue allopurinol 300 MG tablet 300 mg PO QDAY Qty: 0 RF: 0 triamcinolone acetonide 0.5 % cream 1 johnny Topical PRN PRN (Reason: Hemorrhoids) Qty: 0 RF: 0 simvastatin 80 MG tablet 80 mg PO HS Qty: 0 RF: 0 fluticasone 16 GM spray,suspension 2 spray Intranasal QDAY PRN (Reason: seasonal allergies) Qty: 0 RF: 0 lisinopril 40 MG tablet 40 mg PO QDAY Qty: 0 RF: 0 acetaminophen [Tylenol Extra Strength] 500 MG tablet 1 - 2 tab PO HS PRN (Reason: pain) Qty: 0 RF: 0 bupropion HCl [Wellbutrin SR] 100 mg Tablet Extended Release 12 Hr 100 mg PO BID RF: 0 aspirin 325 mg Tablet 325 mg PO DAILY RF: 0 ibuprofen 200 mg Capsule 200 mg PO PRN PRN (Reason: pain) RF: 0 hydroxyzine HCl 25 mg Tablet 25 mg PO Q6H PRN (Reason: nausea, spasm) RF: 0 vovjhya-dznriitattxny-amqwogha [Excedrin Migraine] 250-250-65 mg Tablet 1 tab PO Q4-6H PRN (Reason: headaches) RF: 0 naproxen sodium [Aleve] 220 mg Capsule 220 mg PO BID PRN (Reason: pain) RF: 0 Follow up/Referrals: Naseem Kirk MD [Physician] - 3-5 Days Provider Discharge Instructions Diet: Diet as Tolerated and Regular Activity: You may weightbear as tolerated on your right leg. Cold/Heat Therapy: Apply ice to right knee for 15 min every hour as needed. Skin/Wound/Dressing Care Report to your healthcare provider any signs of infection, such as:: chills, fever, night sweats, increased pain, unusual drainage and unusual redness Dressing: Remove the Cayden wrap 3 days after surgery. Keep the deeper dressing intact until follow-up. If the central strip of the deeper dressing gets wet with either water or saturated with blood, please call the office earlier to have it replaced. Discharge Data Attending Provider: Naseem Kirk Admit Date/Time: 07/09/18 10:59 Quality VTE Deep Vein Thrombosis/Pulmonary Embolism Present on Admission: No
[2018-07-10 08:02] VITALS: BP 130/66; PULSE 58; RESP 16; TEMP 36.5; O2SAT 97
--- NOTE | 2018-07-10 08:45 | PT.IIE ---
Current Diagnoses Bilateral primary osteoarthritis of knee (07/09/18) Surgery Performed Operation Date: 07/09/18 13:30 Actual Procedures p Total Knee Arthroplasty(Right) - Naseem Kirk MD Surgical History (Last Updated 06/26/18 @ 10:02 by Claudia Ghotra RN) History of arthroplasty of left knee (Acute 11/27/17) Hx of appendectomy (Acute) Hx of laminectomy (Acute ~09/2017) Hx of tonsillectomy (Acute) Medical History (Last Updated 06/26/18 @ 10:26 by Claudia Ghotra RN) Anxiety (Acute) Arthritis (Acute) Cataracts, bilateral (Acute) Cubital tunnel syndrome on right (Acute ~2012) Depression (Acute) Diverticulitis (Acute) Gout (Acute) HTN (hypertension) (Acute) Hyperlipidemia (Acute) Migraines (Acute) Murmur (Acute) Neuropathy (Acute) ZACHERY on CPAP (Acute) Peyronie's disease (Acute) Skin cancer (Acute) Undescended testicle (Acute) Physical Therapy Inpatient Evaluation/Re-Eval M1 PT/OT-IP Prior Functional Status Start: 07/10/18 11:55 Freq: NEEDED Status: Discharge Protocol: Document 07/10/18 08:45 (Rec: 07/10/18 12:18 [email or web address]) Medical Review Prior Functional Status Medical History Reviewed Yes Communication No deficits noted Mobility and Gait Pt previously independent with all mobilities using no AD including driving, cooking, and self care. Pt reports fairly high activity levels, plays raquetball regularly Social History Household Members spouse Living Arrangements House Number of Floors (Floors) One Floor Number of Stairs To Enter/Railing? 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 M2 PT-IP Current Condition Start: 07/10/18 11:55 Freq: NEEDED Status: Discharge Protocol: Document 07/10/18 08:45 (Rec: 07/10/18 12:18 [email or web address]) Physical Therapy Current Condition Current Condition Evaluation Date 07/10/18 Treatment Diagnosis R TKA; difficulty walking Onset Date 07/09/18 Weight Bearing Status Weight Bearing Status Weight Bear as Tolerated M3 PT-IP Subjective Start: 07/10/18 11:55 Freq: NEEDED Status: Discharge Protocol: Document 07/10/18 08:45 (Rec: 07/10/18 12:18 [email or web address]) Subjective Physical Therapy Visit Type Type Initial Evaluation Visit Start Time 08:45 Visit Stop Time 09:30 Total Visit Minutes 45 Number of NATIONAL SALES Visits 0 Physical Therapy Visit Comments Patient Comments Pt agreeable to mobilize with PT. Patient Goals Pt plans to d/c home with his . His daughter will be staying with him for 1 wk. upon d/c for assist. Therapy Pain Assessment Pain When Pain Assessed During Mobility Pain Present Pain Present Pain Reported Location Right Knee Scale Used 2/10 at rest. 3/10 with ambulation Pain Management Techniques Apply Cold Elevation Modification of Treatment Re-positioning Timing of Activity with Medications M4 PT-IP Mobility and Gait Start: 07/10/18 11:55 Freq: NEEDED Status: Discharge Protocol: Document 07/10/18 08:45 (Rec: 07/10/18 12:18 [email or web address]) PT-Bed Mobility Assessment Rolling Level of Assist Independent Supine to Sit Supine to Sit Independent Sit to Supine Sit to Supine Independent Scooting Scooting to Edge of Bed Independent Scooting Up and Down in Bed Independent PT-Transfer Assessment Sit to and From Stand Sit to and from Stand Standby Assistance Use of Upper Extremities Equipment Transfer Assistive Device Gait Belt Front Wheeled Walker Orthotic/Prosthetic Devices or Brace: No Transfers Transfer Destination Bed Chair Transfer Technique Ambulates between surfaces Comments Mobility Comments Pt found in recliner. Seated/ resting BP 130/66. Sit <> stand with fww SBA, pt uses BUE, no cues needed. Pt ambulates to bedside (see below). Gait Assessment Gait Gait Assistance Required: Standby Assistance Distance (Feet) 450 Able to Maintain Weight Bearing Status Yes During Gait Assistive Devices Assistive Device Gait Belt Front Wheeled Walker Orthotic/Prosthetic Devices or Brace: No Gait Deviations General Gait Pattern Decreased Stride Length Flexed Trunk Factors Limiting Gait Function Factors Limiting Gait Function Decreased Activity Tolerance Decreased Strength Limited Range of Motion Pain Poor Balance Comments Gait Comments Pt ambulates 450 ft with fww SBA to/from stairs. Pt very steady with gait, decreased stride length and forward flexed posture noted, but pt able to correct this with cuing. Stair Climbing Assessment Evaluation Level of Assist On Stairs Contact Guard Assistance Devices Stair Climbing Assistive Devices Left Railing Technique/Endurance Stair Climbing Direction Ascend and Descend Stair Climbing Technique Step to Step Number of Steps Climbed 3 Query Text: Stair Climbing Set # Repetitions (reps) 1 Comments Stair Climbing Comments Pt up/down 3 steps with L rail ascending CGA, Uses BUE heavily on rail but is able to complete without LOB. Pt understands that he needs to have CGA on stairs for at least the first few days. PT-Balance Assessment Sitting Balance and Reactions Static Sitting Balance Ability Good Dynamic Sitting Balance Ability Good Standing Balance and Reactions Static Standing Balance Ability Good Dynamic Standing Balance Ability Fair Device Used fww Comments Other Balance Tests/Deviations/Treatment Standing balance is good when : pt stands to void. He does not rely on the fww for balance and able to perform all self care easily. M5 PT-IP Objective Assessments Start: 07/10/18 11:55 Freq: NEEDED Status: Discharge Protocol: Document 07/10/18 08:45 (Rec: 07/10/18 12:18 [email or web address]) Orientation Orientation/Cognition Level of Alertness Alert Orientation Name Age Birthday Month Date Year Day of Week Place Situation Language Function Ability No Deficits Noted Safety Awareness Understands Safety Issues Gross Range of Motion Lower Extremity ROM Assessment Right Impaired Impairments R knee ROM ~90deg. Extension 0deg. Strength Lower Extremity Strength Assessment Right Impaired Hip 5 Knee 4 Ankle 5 M6 PT-IP Treatment Start: 07/10/18 11:55 Freq: NEEDED Status: Discharge Protocol: Document 07/10/18 08:45 (Rec: 07/10/18 12:18 [email or web address]) Physical Therapy Treatment Exercises Exercises Ankle Pumps Quad Sets Heel Slides Straight Leg Raises Short Arc Quads Passive Knee Extension Hang Seated Knee Flexion/Extension Education Education Provided Precautions Weight Bearing Status Post-Op Packet Safety M7 PT-IP Assessment and Plan Start: 07/10/18 11:55 Freq: NEEDED Status: Discharge Protocol: Document 07/10/18 08:45 (Rec: 07/10/18 12:18 [email or web address]) PT Summary Assessment and Plan Potential Rehabilitation Potential Good Status of Condition at Evaluation Stable Summary Impairments Pain ROM Strength Balance Bed Mobility Transfers Gait Activity Tolerance Assessment Summary Pt s/p L TKA with difficulty walking. Pt ambulated community distances SBA with fww and needed CGA during stair climbing. He will have the assist of his daughter for 1 wk. post op and agreed to have her provide CGA on stairs . When pt is medically ready, recommend d/c to home with assist and OP PT. Goals Bed Mobility Goal Independent Transfer Goal Independent Front Wheeled Walker Gait Goal Independent Front Wheel Walker Gait Distance 500 Other Goals Pt up/down 3 steps L rail independently Frequency of Treatment Frequency Of Treatment Twice a Day Treatment Plan Physical Therapy Treatment Plan Bed Mobility Training Transfer Training Gait Training Therapeutic Exercise Balance Retraining Post Op Education Discharge Planning Hot or Cold Pack Neuromuscular Re-ed Coordination Retraining Manual Therapy Other Recommendations and Next Treatment Stair climbing Focus Recommendations To Nursing Amount of Assist Needed Standby Assistance Discharge Recommendations PT Discharge Recommendations Home with Assistance Outpatient PT
[2018-07-10] MEDS: buPROPion SR 100 MG TAB PO (10:06)
[2018-07-10] MEDS: DOCUSATE 100 MG CAPSULE PO (10:07)
[2018-07-10] MEDS: POLYETHYLENE GLYCOL 3350 17 GM POWD.PACK PO (10:07)
[2018-07-10] MEDS: FLUTICASONE 120 SPRAY/16 GM SPRAY.SUSP NASAL (10:07)
[2018-07-10 10:08] VITALS: BP 130/66
[2018-07-10] MEDS: SODIUM CHLORIDE 0.9% FLUSH 10 ML IV (10:08)
[2018-07-10] MEDS: LISINOPRIL 20 MG TABLET 40 MG PO (10:08)
--- NOTE | 2018-07-10 12:23 | PC.NURSE ---
Discharge: IV dc'd intact. Reviewed all d/c info with patient and his daughter. Given all education info. Patient already has scripts for pain meds at home. Follow up appt made and patient given time/date. Verbalized understanding of all d/c instructions and stated no further questions. Taken out to private vehicle by this financial writer. All personal belongings sent with patient at discharge including glasses, cellphone, iPad, clothes, shoes, CPAP, etc.
--- NOTE | 2018-07-10 12:43 | CM.DANOTE ---
Discharge Planning/Care Management DCP: assessment: case received this morning 0900, EMR reviewed. Discussed in Team Rounds with ortho DEXTER Montoya. Pt is a 73 year old male who admitted yesterday for a planned R TKA. Surgeon: Dr. Yelena Abernathy [facility] ADV PT was ordered. DEXTER Montoya noted that Dr. Kirk did see pt early this morning and pt was expected to be able to d/c home later today after PT and if he continued to do well. Went to room now to check in with pt. Room empty. HARDEEP Delgadillo reported that pt had just d/c'd home with his . She said he expressed that he was comfortable with the d/c today, he had the L knee done in the past and remarked that this one was much lessl painful. P: home as per his plan. Ortho followup as per the pre-op clinic protocol. CM Discharge Assessment Start: 07/10/18 12:42 Freq: Status: Discharge Protocol: Document 07/10/18 12:43 ITV (Rec: 07/10/18 12:43 ITV [id number]) Discharge Planning Assessment Advance Directives? Yes Advance Directives on File Yes History Provided By Medical Record Prior Living Arrangements House Household Members spouse Discharge Plan Home Additional Comment Patient plans to d/c home with supportive spouse and family. Patient reports that he has all needed DME and uses CPAP at night. If patient plan is home with home health N/A : Has signed face to face form been completed? If patient plan is SNF: Has PASSR been N/A completed? 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 No Height 182.88 cm Weight 99.79 kg Body Mass Index (BMI) 29.8 Hearing Ability Hard of Hearing Use of Hearing Aid Visual Assist Glasses Dentition Type Teeth, Natural Present Teeth, Missing Barriers to Learning None Hx Anesthesia Reactions Yes: Trouble placing spinal Hx Family Anesthesia Reaction No Hx Malignant Hyperthermia No Hx Blood Transfusions No Anesthesia Review Requested No Biodiesel Operations Manager No alcohol intake current alcohol intake frequency a few times a week Smoking Status Former smoker how long ago did patient quit smoking Quit approx 40 years ago Substance Use Type does not use Pain Present Pain Reported Musculoskeletal Symptoms Abnormal Gait Back Pain Difficulty Walking Joint Pain Numbness History of Falling (Recent or History of No ) Patient is completely paralyzed or No completely immobile Mental Status Oriented to own ability Is patient on oxygen? No Does patient have [place]/SOB No Hx Sleep Apnea Yes CPAP/BIPAP use prescribed and used routinely Will Bring CPAP/BIPAP DOS Yes Currently Taking a Beta Alonzo No Can You Climb a Flight of Stairs Without Yes SOB Hx Chest Pain No Hx SOB No Hx Syncope or Dizziness No Anti-Coagulant Therapy No Has a Boom Operator No Cardiac Testing No Hx Pacemaker/ICD No Pacemaker Rep Required? No Cardiac Clearance Received Not Applicable Diet Type At Home Regular Low Sodium dysphagia No Urinary Catheter Present No Hx Urinary Self Catheterization No Comment Hx of Peyronie's syndrome Diabetes No HgbA1C 5.5 Date 06/04/18 Hx Drug Resistant Organism No Presence of External or Internal Medical No Devices Have you traveled outside the [facility] States in the last 30 days? Marital Status Lives With spouse Prior Living Arrangements House Number of Floors (Floors) One Floor Number of Stairs To Enter/Railing? two stairs, railing present Support System Child/Children Sibling(s) Spouse Does the Patient Have Assistance After Yes Surgery Patient Discharge Plan Description Return Home Comment Pt advised 2 day length of stay per surgeon's office Feels Safe in Current Environment Yes Been Physically Hurt or Threatened By a No Person in Current Environment Do you have thoughts of harming yourself None or others? Are you currently considering suicide? No Do you have a plan to hurt yourself or No Plan others? Do You Have Any Spiritual Beliefs That No May Affect Your HC Choices? Do You Have Any Cultural Practices That No May Affect Your HC Choices? Spiritual Referral In-House Wheel Assembler Comment Sadia Who Can We Speak to About Patient's Care Family, friends Identifying Code for Release of Patient Declines to issue Information Health Care Proxy/Next of Kin Xochitl () or Jeni ( daughter) Health Care Proxy Phone Number Xochitl: [phone] Jeni: [phone] Emergency Contact Name Xochitl () or Jeni ( daughter) Emergency Contact Phone Number Xochitl: [phone] Jeni: [phone] Advance Directives? Yes Advance Directives on File Yes Power of Deputy Commissioner Yes Power of Deputy Commissioner Name Xochitl () or Jeni ( daughter) Power of Deputy Commissioner Phone Number Xochitl: [phone] Jeni: [phone] PAC Instructions Bring CPAP/BIPAP Durable medical equipment Medications to take/avoid Nasal antibiotic No ETOH/petroleum product on skin DOS NPO Pre-surgical wash Sturdy shoes/comfortable clothes Do not bring valuables and remove jewelry PAC Comment has been very ill last 3 months, patient has had to reschedule surgery 3 times.
== END 2018-07-10 12:25 | disposition home or self-care (01) | DRG 470 ==
PROVIDERS: Admitting Provider Orthopaedic Surgery; Visit Provider Orthopaedic Surgery
PROC: 0SRC0JZ Replacement of Right Knee Joint with Synthetic Substitute, Open Approach (ICD-10-PCS; CPT 27447; principal; 2018-07-09 13:30)
DX: M17.11 Unilateral primary osteoarthritis, right knee (principal); G47.33 Obstructive sleep apnea (adult) (pediatric); I10 Essential (primary) hypertension; E78.5 Hyperlipidemia, unspecified; F32.9 Major depressive disorder, single episode, unspecified; F41.9 Anxiety disorder, unspecified; Z87.891 Personal history of nicotine dependence; Z96.652 Presence of left artificial knee joint
CPT/HCPCS: 36415; 73560; 85014; 85018; 97116; 97161; 97530; C1776; C9290; J0690; J1100; J1170; J2270; J2405; J2704; J3010